=== PATIENT | female | born 1970 | race Caucasian/White ===

== ENCOUNTER 2016-08-07 21:39 | Emergency (ER) | payer OTHER ==
[~2016-08-07] VITALS: Ht 167.6 cm; Wt 60.8 kg
[~2016-08-07 21:39] MED LIST: NORCO 10-325 T1 EACH PO; NORCO 5-325 TA1 EACH PO; SYNTHROID0.15 MG PO; VALTREX500 MG PO; VIBRAMYCIN100 MG PO; ZITHROMAX250 MG PO; ZOLOFT100 MG PO
[2016-08-07 21:45] VITALS: BP 122/76
[2016-08-07] MEDS ORDERED: PAXIL40 M1 PO (21:46)
[2016-08-07] MEDS ORDERED: CEPHALEXIN500 M1 PO (23:02)
[2016-08-07] MEDS ORDERED: VIBRAMYCIN100 MG PO (23:02)
== END 2016-08-07 23:07 | disposition home or self-care (01) ==
LOC: ED 21:39
DX: L02.413 Cutaneous abscess of right upper limb (principal); Z88.0 Allergy status to penicillin; Z88.1 Allergy status to other antibiotic agents; Z88.2 Allergy status to sulfonamides; Z88.6 Allergy status to analgesic agent; F17.200 Nicotine dependence, unspecified, uncomplicated

== ENCOUNTER 2016-08-14 21:36 | Emergency (ER) | payer OTHER ==
[~2016-08-14] VITALS: Ht 167.6 cm; Wt 63.0 kg
[~2016-08-14 21:36] MED LIST changes: +CEPHALEXIN500 M1 PO; +PAXIL40 M1 PO
[2016-08-14 21:46] VITALS: BP 118/74
[2016-08-14 22:24] LABS: BASO # 0.1 10*3/uL (0.0-0.1); EOS # 0.2 10*3/uL (0.0-0.4); EOS % 2.8 % (1.0-4.0); HEMATOCRIT 40.2 % (37.0-47.0); HEMOGLOBIN 13.3 g/dl (12.0-16.0); LYMPH # 3.4 10*3/uL (1.3-4.4); LYMPH % 39.1 % (27.0-41.0); MEAN CELL VOLUME 90.7 fl (81.0-99.0); MEAN CORPUSCULAR HGB CONC 33.1 g/dl (33.0-37.0); MEAN PLATELET VOLUME 11.4 fl (9.6-12.3); MONO # 0.7 10*3/uL (0.1-1.0); MONO % 7.9 % (3.0-9.0); NEUT # 4.2 10*3/uL (2.3-7.9); PLATELET COUNT AUTOMATED 199 10*3/uL (130-400); RED BLOOD COUNT 4.43 10*6/uL (4.10-5.10); RED CELL DISTRI WIDTH 13.5 % (0-14.5); WHITE BLOOD COUNT 8.6 10*3/uL (4.8-10.8)
[2016-08-14 22:40] LABS: ALBUMIN 3.4 gm/dl (3.1-4.5); ALKALINE PHOSPHATASE 73 U/L (45-117); BILIRUBIN, TOTAL 0.2 mg/dl (0.2-1.0); BUN 10 mg/dl (7-24); CARBON DIOXIDE 25 mmol/L (21-32); CHLORIDE 107 mmol/L (98-107); EST GLOM FILT AFRICAN AMERICAN > 60 ml/min; GLUCOSE 109 mg/dL (65-99); POTASSIUM 3.5 mmol/L (3.5-5.1); SGOT/AST 15 IU/L (3-35); SGPT/ALT 13 U/L (12-78); SODIUM 142 mmol/L (136-145); TOTAL PROTEIN 6.1 gm/dL (6.4-8.2)
== END 2016-08-15 04:08 | disposition short-term general hospital (02) ==
LOC: ED 21:36
PROVIDERS: Physician Assistant
DX: L51.1 Stevens-Johnson syndrome (principal); F17.200 Nicotine dependence, unspecified, uncomplicated; Z79.899 Other long term (current) drug therapy; Z88.0 Allergy status to penicillin; Z88.2 Allergy status to sulfonamides; Z88.1 Allergy status to other antibiotic agents; Z88.6 Allergy status to analgesic agent

== ENCOUNTER 2016-10-28 20:15 | Emergency (ER) | payer OTHER ==
[2016-10-28 20:21] VITALS: BP 140/80
[2016-10-28] MEDS ORDERED: EFFEXOR-XR150 MG PO (20:21)
[2016-10-28] MEDS ORDERED: DOXYCYCLINE100 M3 PO (20:28)
== END 2016-10-28 20:49 | disposition home or self-care (01) ==
LOC: ED 20:15
DX: L02.412 Cutaneous abscess of left axilla (principal); Z88.0 Allergy status to penicillin; Z88.2 Allergy status to sulfonamides; Z88.1 Allergy status to other antibiotic agents; Z88.6 Allergy status to analgesic agent; Z79.899 Other long term (current) drug therapy

== ENCOUNTER 2017-05-30 06:16 | Emergency (ER) | payer OTHER ==
[~2017-05-30] VITALS: Ht 167.6 cm; Wt 62.6 kg
[~2017-05-30 06:16] MED LIST changes: +DOXYCYCLINE100 M3 PO; +EFFEXOR-XR150 MG PO
[2017-05-30 10:00] VITALS: BP 118/64
[2017-05-30] MEDS ORDERED: CLINDAMYCIN HC300 MG PO (10:19)
[2017-05-30] MEDS ORDERED: CIPRO250 MG PO (10:19)
[2017-05-30] MEDS ORDERED: PERCOCET 5-3251 EACH PO (10:20)
[2017-05-30] MEDS ORDERED: TRIPLE ANTIBI28.4 G1 T (10:21)
[2017-05-30] MEDS ORDERED: VIBRAMYCIN100 MG PO (10:26)
== END 2017-05-30 10:41 | disposition home or self-care (01) ==
LOC: ED 06:16
DX: S51.811A Laceration without foreign body of right forearm, initial encounter (principal); S01.25XA Open bite of nose, initial encounter; S41.151A Open bite of right upper arm, initial encounter; Z90.710 Acquired absence of both cervix and uterus; Z90.89 Acquired absence of other organs; Z79.899 Other long term (current) drug therapy; Z88.0 Allergy status to penicillin; Z88.2 Allergy status to sulfonamides; Z88.6 Allergy status to analgesic agent; W54.0XXA Bitten by dog, initial encounter; Y93.89 Activity, other specified; Y92.89 Other specified places as the place of occurrence of the external cause; Y99.9 Unspecified external cause status

== ENCOUNTER 2018-03-10 13:08 | Emergency (ER) | payer OTHER ==
[~2018-03-10] VITALS: Ht 167.6 cm; Wt 65.8 kg
[~2018-03-10 13:08] MED LIST changes: +CIPRO250 MG PO; +CLINDAMYCIN HC300 MG PO; +PERCOCET 5-3251 EACH PO; +TRIPLE ANTIBI28.4 G1 T
[2018-03-10 13:10] VITALS: BP 134/70
== END 2018-03-10 13:41 | disposition home or self-care (01) ==
LOC: ED 13:08
DX: L98.9 Disorder of the skin and subcutaneous tissue, unspecified (principal); Z88.0 Allergy status to penicillin; Z88.2 Allergy status to sulfonamides; Z88.6 Allergy status to analgesic agent; Z79.899 Other long term (current) drug therapy

== ENCOUNTER 2020-07-17 17:42 | Emergency (ER) | payer OTHER ==
[~2020-07-17] VITALS: Ht 167.6 cm; Wt 72.6 kg
[2020-07-17 17:44] VITALS: BP 110/73
== END 2020-07-17 19:29 | disposition home or self-care (01) ==
LOC: ED 17:42
DX: S61.210A Laceration without foreign body of right index finger without damage to nail, initial encounter (principal); Z88.0 Allergy status to penicillin; Z88.2 Allergy status to sulfonamides; Z88.1 Allergy status to other antibiotic agents; Z88.8 Allergy status to other drugs, medicaments and biological substances; Z91.041 Radiographic dye allergy status; Z79.2 Long term (current) use of antibiotics; Z79.899 Other long term (current) drug therapy; Z90.711 Acquired absence of uterus with remaining cervical stump; Z85.42 Personal history of malignant neoplasm of other parts of uterus; Z90.10 Acquired absence of unspecified breast and nipple; W54.0XXA Bitten by dog, initial encounter; Y93.89 Activity, other specified; Y92.89 Other specified places as the place of occurrence of the external cause; Y99.8 Other external cause status

== ENCOUNTER → 2022-04-12 | Outpatient (CLI) | payer OTHER ==
[2022-04-12 08:14] LABS: ALKALINE PHOSPHATASE 82 U/L (46-116); BUN 8 mg/dl (9-23); CHLORIDE 106 mmol/L (98-107); POTASSIUM 4.7 mmol/L (3.4-5.1); SGPT/ALT 12 U/L (10-49); T3 UPTAKE 21.3 % (22.4-36.7); THYROXINE (T4) TOTAL 3.7 ug/dl (4.5-10.9); TOTAL PROTEIN 6.9 gm/dL (6.0-8.0)
== END | disposition home or self-care (01) ==
LOC: LAB 07:23
PROVIDERS: ATTEND Emergency Medicine
DX: E03.9 Hypothyroidism, unspecified (principal); E16.2 Hypoglycemia, unspecified

== ENCOUNTER → 2024-01-03 | Outpatient (CLI) | payer OTHER ==
[2024-01-03 11:06] LABS: BASO # 0.1 10*3/uL (0.0-0.1); BASO % 1.1 % (0.0-1.0); EOS # 0.1 10*3/uL (0.0-0.4); EOS % 1.4 % (1.0-4.0); HEMATOCRIT 45.6 % (37.0-47.0); MEAN CELL VOLUME 86.2 fl (81.0-99.0); MEAN CORPUSCULAR HGB CONC 32.5 g/dl (33.0-37.0); MEAN PLATELET VOLUME 11.5 fl (9.6-12.3); MONO # 0.8 10*3/uL (0.1-1.0); MONO % 8.9 % (3.0-9.0); NEUT # 5.2 10*3/uL (2.3-7.9); NEUT % 58.7 % (47.0-73.0); PLATELET COUNT AUTOMATED 227 10*3/uL (130-400); RED BLOOD COUNT 5.29 10*6/uL (4.10-5.10); RED CELL DISTRI WIDTH 14.5 % (0-14.5); WHITE BLOOD COUNT 8.9 10*3/uL (4.8-10.8)
[2024-01-03 11:26] LABS: ALKALINE PHOSPHATASE 130 U/L (46-116); BUN 9 mg/dl (9-23); CHLORIDE 106 mmol/L (98-107); POTASSIUM 3.9 mmol/L (3.4-5.1); SGPT/ALT 19 U/L (5-49)
[2024-01-03 11:53] LABS: VITAMIN D, 25-HYDROXY 9.1 ng/mL (30-100)
== END | disposition home or self-care (01) ==
LOC: LAB 10:12
PROVIDERS: ATTEND Emergency Medicine
DX: F33.2 Major depressive disorder, recurrent severe without psychotic features (principal); E03.9 Hypothyroidism, unspecified; E55.9 Vitamin D deficiency, unspecified; F41.9 Anxiety disorder, unspecified; F33.9 Major depressive disorder, recurrent, unspecified; G47.00 Insomnia, unspecified; G89.29 Other chronic pain

== ENCOUNTER → 2024-03-11 | Outpatient (CLI) | payer OTHER ==
[2024-03-11 12:15] LABS: VITAMIN D, 25-HYDROXY 61.2 ng/mL (30-100)
[2024-03-11 12:16] LABS: FREE T4 1.19 ng/dl (0.89-1.76)
== END | disposition home or self-care (01) ==
LOC: LAB 11:00
PROVIDERS: Student in an Organized Health Care Education/Training Program; ATTEND Internal Medicine Endocrinology, Diabetes & Metabolism
DX: E03.9 Hypothyroidism, unspecified (principal); E55.9 Vitamin D deficiency, unspecified

== ENCOUNTER → 2024-03-25 | Outpatient (CLI) | payer OTHER | END | disposition home or self-care (01) | LOC: US 07:20 | PROVIDERS: ATTEND Internal Medicine Endocrinology, Diabetes & Metabolism | DX: E04.2 Nontoxic multinodular goiter (principal); E03.9 Hypothyroidism, unspecified ==

== ENCOUNTER → 2024-04-15 | Outpatient (CLI) | payer OTHER | END | disposition home or self-care (01) | LOC: SDC 11:00 → EDSTATUS 11:00 | PROVIDERS: Radiology Diagnostic Radiology; ATTEND Internal Medicine Endocrinology, Diabetes & Metabolism | DX: E04.1 Nontoxic single thyroid nodule (principal) ==

== ENCOUNTER → 2024-05-21 | Outpatient (CLI) | payer OTHER | END | disposition home or self-care (01) | LOC: LAB 11:35 | PROVIDERS: Student in an Organized Health Care Education/Training Program; ATTEND Internal Medicine Endocrinology, Diabetes & Metabolism | DX: E03.9 Hypothyroidism, unspecified (principal) ==